=== PATIENT | female | born 1975 | race Caucasian/White ===

== ENCOUNTER 2020-12-13 06:50 | Emergency (ER) | payer MEDICAID, SELFPAY ==
--- NOTE | ~2020-12-13 | CT_ITS ---
EXAMINATION: CT CHEST PE STUDY CLINICAL INFORMATION: Elevated d-dimer. Evaluate for DVT. COMPARISON: Chest x-ray dated 12/13/2020. TECHNIQUE: Prior to contrast administration, localization images were obtained. After the administration of 65 mL of intravenous Omnipaque 350, multidetector CT volume acquisition of the chest was performed. 3-D postprocessing was performed with multiplanar reconstructions and MIP images obtained at the acquisition workstation under concurrent physician supervision. This CT examination was performed using dose optimization techniques as appropriate, variously including the following: *Automated exposure control *Adjustment of mA and/or kV according to patient size (this includes techniques or standardized protocols for targeted exams where dose is matched to indication/reason for exam; i.e. extremities or head) *Use of iterative reconstruction technique DLP: 232.00 mGy-cm. FINDINGS: Pulmonary arteries: The bolus timing on this study was delayed but acceptable for visualization of the pulmonary arterial tree. There is limitation in assessment of the central pulmonary vessels, especially in the right upper lobe due to extensive beam hardening artifact from dense contrast within the superior vena cava. Multiple subtle filling defects are suggested within the right upper lobe segmental and subsegmental pulmonary arteries, which, however, appear linear on the coronal reconstructed sequences and are most consistent with stairstep artifact. There are no definite intraluminal pulmonary arterial filling defects seen to suggest pulmonary embolism in the main pulmonary artery, right and left main pulmonary artery, lobar and segmental branches. Lungs: There are multifocal bilateral patchy groundglass opacities seen in the lungs bilaterally, suspicious for a diffuse viral or atypical pneumonitis. In the correct clinical setting, this may represent COVID 19 pneumonia. No dense consolidation is seen and no air bronchograms are noted. No significant pleural effusion or pneumothorax. The central airways are patent. Mild biapical pleural-based reticulation seen, consistent with scarring. There are a few scattered solid noncalcified 2 to 5 mm pulmonary nodules, including in the right upper lobe (series 9, image 72, 117) and based on the right minor fissure (series 9, image 245), most consistent with a fissural based lymph node). Aorta and heart: The heart is normal in size. The aorta is normal. There is no pericardial effusion Lymphatic structures: There is no lymphadenopathy. Upper abdomen: Limited evaluation of the upper abdominal viscera demonstrates no focal abnormality. Bones: No significant focal findings. CT/CT angio chest PE protocol IMPRESSION: 1. Limited exam due to extensive beam hardening artifact. No definite evidence of pulmonary embolism. 2. Multifocal bilateral patchy groundglass opacities in the lungs bilaterally, raising the suspicion of a diffuse viral or atypical pneumonitis. As mentioned above, in the correct clinical setting, findings may be consistent with COVID 19 pneumonia. 3. A few scattered nonspecific 2 to 5 mm solid noncalcified pulmonary nodules are seen in the lungs bilaterally, at least one of which is consistent with a fissural based lymph node. These are of doubtful clinical significance and if the patient has no underlying risk factors, no additional follow-up imaging is required. If the patient has underlying risk factors, optional CT scan follow-up in 12 months can be performed. VTE: Negative
--- NOTE | ~2020-12-13 | XR_ITS ---
EXAMINATION: XR CHEST CLINICAL INFORMATION: Shortness of breath COMPARISON: None TECHNIQUE: Frontal view of the chest was obtained. FINDINGS: No significant abnormality is noted involving the heart, lungs, mediastinum, bony thorax or soft tissues. XR/XR chest 1V IMPRESSION: Unremarkable examination.
[2020-12-13 07:20] VITALS: BP 128/77; PULSE 69; RESP 18; O2SAT 94; BMI 27.4
--- NOTE | 2020-12-13 08:23 | ED.URI ---
HPI - URI/Sore Throat General Chief Complaint: Upper Respiratory Symptoms Stated Complaint: DIFF BREATHING Time Seen by Provider: 12/13/20 08:18 Source: patient Mode of arrival: ambulatory Limitations: no limitations History of Present Illness HPI Narrative: 45-year-old female came in for evaluation of shortness of breath. Patient walked into emergency department today with symptoms of shortness of breath for the past 2 weeks, patient currently is a smoker, feels chest tightness on coughing sometimes green sputum production, patient declined any fever chills, patient declined flu-like symptoms or generalized body ache or fever, no recent travel, no recent exposure to sick contact, no lower extremity swelling, no history of PE/DVT. No chest pain. Patient never had a history of asthma or bronchitis. Related Data Previous Rx's Medication Instructions Recorded albuterol sulfate [ProAir HFA] 1 inh INHALATION QID PRN #8.5 g 12/13/20 prednisone 20 mg PO BID #10 tab 12/13/20 Allergies Allergy/AdvReac Type Severity Reaction Status Date / Time No Known Allergies Allergy Verified 12/13/20 07:20 Review of Systems Review of Systems: All other systems are reviewed and are negative Constitutional: Reports as per HPI and Reports no additional constitutional complaints Eyes: Reports as per HPI and Reports no additional eye complaints Reports system reviewed and no additional complaints, except as documented Cardiovascular: Reports as per HPI and Reports no additional cardiovascular complaints Respiratory: Reports as per HPI and Reports no additional respiratory complaints Gastrointestinal: Reports as per HPI and Reports no additional gastrointestinal complaints Genitourinary: Reports no additional female genitourinary complaints Musculoskeletal: Reports no additional musculoskeletal complaints Skin/Breast: Reports system reviewed and no additional complaints, except as docu Psychiatric: Reports no additional psychiatric complaints Endocrine: Reports no additional endocrine complaints Hematologic/Lymphatic: Reports no additional hematologic/lymphatic complaints Allergic/Immunologic: Reports no additional allergic/immunologic complaints Reports system reviewed and no additional complaints, except as documented and Reports Abnormal speech present [facility] Social History Social History Advance Directives: No Advance Directives Information Provided: No Physical Exam Vital Signs: Vital Signs: Last Vital Signs Temp 97.9 F 12/13/20 11:24 Pulse 86 12/13/20 11:24 Resp 16 12/13/20 11:24 BP 118/55 L 12/13/20 11:24 Pulse Ox 95 12/13/20 11:24 Body Mass Index 27.4 Vital signs have been reviewed as appeared to be correct. Blood pressure normal. Heart rate normal. Respiration rate normal. Temperature normal. Oxygen saturation normal. Appearance: Alert. Oriented X3. No acute distress. Head: Normal external exam. Normocephalic. Atraumatic. No Mcdonald signs noted. No raccoon eyes noted Eyes: PERRLA. EOMI. Conjunctiva and sclera normal. Eyelids normal. ENT: TM's Normal. Pharynx normal. Uvula midline. Moist mucous membranes. No trismus noted. No drooling noted. No muffled voice noted. Neck: Normal inspection. Neck supple. FROM. No adenopathy. Thyroid Normal. No meningeal signs. No neck mass noted. CVS: Normal heart rate and rhythm. Heart sound normal. No murmurs noted. Pulses normal throughout. Respiratory: No respiratory distress. Painless inspiration. Breath sounds normal. Diffuse bilateral expiratory wheezing with prolonged expiration, no rhonchi noted. Chest nontender. No accessory muscle usage noted or decreased air movement noted. Abdomen: Soft and nontender. Bowel sounds normal in all 4 quadrants. No distention noted. No organomegaly noted. No visible injury noted. Back: No CVA tenderness. Full range of motion noted. Skin: Skin warm and dry. Normal skin color. Normal skin turgor. No rashes/lesions/lacerations noted. Extremities: No lower extremity edema. Extremities exhibit normal range of motion. Extremities nontender. Neuro: Oriented X 3. No motor deficit. No sensory deficit. Reflexes normal. Course Course Course Narrative: Assessment and plan. Shortness of breath, patient has no risk for COVID or sick contact exposure, COVID testing was negative today, however CT of the chest is recommending patient had COVID infection, patient has no risk for PE or DVT, patient felt better with bronchodilator/Solu-Medrol while she is in the emergency department and patient felt better after the treatment. MDM - URI/Sore Throat Lab Data Attestation: I reviewed the patient's lab results. Result diagrams: 12/13/20 08:57 12/13/20 08:57 Labs: Lab Results 05/01/21 05/01/21 05/01/21 Range/Units 08:57 08:57 08:57 WBC 11.7 H (4.8-10.8) X10*3/uL RBC 5.23 (4.20-5.50) X10*6/uL Hgb 14.9 (12.0-16.0) g/dl Hct 45.1 (37-47) % MCV 86.2 (80-98) fL MCH 28.5 (27.0-33.0) pg MCHC 33.0 (31.0-35.0) g/dl RDW 14.9 (11.0-16.0) % Plt Count 417 H (160-400) X10*3/uL MPV 10.4 (9.4-12.3) fL Immature Gran % (Auto) 0.3 (0.0-0.4) % Neut % (Auto) 74.6 H (45-73) % Lymph % (Auto) 12.2 L (20-40) % Cotton % (Auto) 5.0 (2-11) % Eos % (Auto) 7.3 H (0-4) % Baso % (Auto) 0.6 (0-2) % Lymph # (Auto) 1.4 (1.2-4.9) X10*3/uL Cotton # (Auto) 0.6 (0.1-1.2) X10*3/uL Eos # (Auto) 0.9 H (0.0-0.4) X10*3/uL Baso # (Auto) 0.1 (0.0-0.2) X10*3/uL Abs Immat Gran (auto) 0.03 (0.00-0.03) X10*3/uL Absolute Neuts (auto) 8.7 H (2.0-8.3) X10*3/uL Absolute Nucleated RBC 0.000 (0.0-0.012) X10*3/uL Nucleated RBC % (auto) 0.0 (0.0-0.2) /100WBC D-Dimer 419 NG/ML Sodium 139 (135-145) mmol/L Potassium 4.3 (3.3-5.1) mmol/L Chloride 104 (96-108) mmol/L Carbon Dioxide 23 (22-29) mmol/L Anion Gap 16 (12-20) BUN 9 (9-16) mg/dL Creatinine 0.77 (0.5-1.4) mg/dL Estim Creat Clear Calc 83.4 Estimated GFR > 60 Random Glucose 85 (60-115) mg/dL Calcium 9.8 (8.4-10.2) mg/dL Troponin I High Sens (<3.5-17.0) ng/L B-Natriuretic Peptide (<100) pg/mL COVID-19 (EDILBERTO) (Negative) COVID-19 Clin Com 12/13/20 12/13/20 Range/Units 08:57 08:57 WBC (4.8-10.8) X10*3/uL RBC (4.20-5.50) X10*6/uL Hgb (12.0-16.0) g/dl Hct (37-47) % MCV (80-98) fL MCH (27.0-33.0) pg MCHC (31.0-35.0) g/dl RDW (11.0-16.0) % Plt Count (160-400) X10*3/uL MPV (9.4-12.3) fL Immature Gran % (Auto) (0.0-0.4) % Neut % (Auto) (45-73) % Lymph % (Auto) (20-40) % Cotton % (Auto) (2-11) % Eos % (Auto) (0-4) % Baso % (Auto) (0-2) % Lymph # (Auto) (1.2-4.9) X10*3/uL Cotton # (Auto) (0.1-1.2) X10*3/uL Eos # (Auto) (0.0-0.4) X10*3/uL Baso # (Auto) (0.0-0.2) X10*3/uL Abs Immat Gran (auto) (0.00-0.03) X10*3/uL Absolute Neuts (auto) (2.0-8.3) X10*3/uL Absolute Nucleated RBC (0.0-0.012) X10*3/uL Nucleated RBC % (auto) (0.0-0.2) /100WBC D-Dimer NG/ML Sodium (135-145) mmol/L Potassium (3.3-5.1) mmol/L Chloride (96-108) mmol/L Carbon Dioxide (22-29) mmol/L Anion Gap (12-20) BUN (9-16) mg/dL Creatinine (0.5-1.4) mg/dL Estim Creat Clear Calc Estimated GFR Random Glucose (60-115) mg/dL Calcium (8.4-10.2) mg/dL Troponin I High Sens < 3.5 (<3.5-17.0) ng/L B-Natriuretic Peptide 20 (<100) pg/mL COVID-19 (EDILBERTO) Negative (Negative) COVID-19 Clin Com See Note Imaging Data CT angio chest: Radiologist's impression: 1. Limited exam due to extensive beam hardening artifact. No definite evidence of pulmonary embolism. 2. Multifocal bilateral patchy groundglass opacities in the lungs bilaterally, raising the suspicion of a diffuse viral or atypical pneumonitis. As mentioned above, in the correct clinical setting, findings may be consistent with COVID 19 pneumonia. 3. A few scattered nonspecific 2 to 5 mm solid noncalcified pulmonary nodules are seen in the lungs bilaterally, at least one of which is consistent with a fissural based lymph node. These are of doubtful clinical significance and if the patient has no underlying risk factors, no additional follow-up imaging is required. If the patient has underlying risk factors, optional CT scan follow-up in 12 months can be performed. Chest x-ray: Radiologist's impression: Unremarkable. Discharge Plan Discharge Clinical Impression: Bronchitis Patient Disposition: Home, Self-Care Instructions: Acute Bronchitis (ED) Prescriptions: New prednisone 20 mg tablet 20 mg PO BID Qty: 10 RF: 0 albuterol sulfate [ProAir HFA] 90 mcg/actuation HFA aerosol inhaler 1 inh inhalation QID PRN (Reason: shortness of breath or wheezing) Qty: 8.5 RF: 0 Referrals: Physician,Unknown [Primary Care Provider] - 2 days
[2020-12-13 08:48] VITALS: PULSE 63; O2SAT 95
[2020-12-13] MEDS: Albuterol Sulfate (0.083%) 2.5 MG/3 ML VIAL.NEB INHALE (08:48)
[2020-12-13] MEDS: Albuterol/Iprat 2.5/0.5MG 3 ML AMPUL.NEB INHALE (08:48)
[2020-12-13] MEDS: methylPREDNISolone Sod Succ 125 MG/2 ML VIAL IVPUSH (09:00)
[2020-12-13 09:05] LABS: MANUAL DIFF FLAG NO
[2020-12-13 09:10] LABS: Basophils Absolute Auto 0.1 X10*3/uL (0.0-0.2); Basophils Percent Auto 0.6 % (0-2); Eosinophils Absolute Auto 0.9 X10*3/uL (0.0-0.4); Eosinophils Percent Auto 7.3 % (0-4); Hematocrit 45.1 % (37-47); Hemoglobin 14.9 g/dl (12.0-16.0); Imm Gran Abs Auto 0.03 X10*3/uL (0.00-0.03); Imm Gran Pct Auto 0.3 % (0.0-0.4); Lymphocytes Absolute Auto 1.4 X10*3/uL (1.2-4.9); Lymphocytes Percent Auto 12.2 % (20-40); Mean Corpuscular Hemoglobin 28.5 pg (27.0-33.0); Mean Corpuscular Volume 86.2 fL (80-98); Mean Platelet Volume 10.4 fL (9.4-12.3); Monocytes Absolute Auto 0.6 X10*3/uL (0.1-1.2); Neutrophils Absolute Auto 8.7 X10*3/uL (2.0-8.3); Neutrophils Percent Auto 74.6 % (45-73); Platelet Count 417 X10*3/uL (160-400); Red Blood Count 5.23 X10*6/uL (4.20-5.50); Red Cell Distribution Width 14.9 % (11.0-16.0); White Blood Count 11.7 X10*3/uL (4.8-10.8)
[2020-12-13 09:26] LABS: COVID-19 Test Negative (Negative)
[2020-12-13 09:40] LABS: D Dimer 419 NG/ML
[2020-12-13 09:48] LABS: Anion Gap 16 (12-20); Blood Urea Nitrogen 9 mg/dL (9-16); Calcium 9.8 mg/dL (8.4-10.2); Carbon Dioxide 23 mmol/L (22-29); Chloride 104 mmol/L (96-108); Creatinine Clr Calc Pharmacy 83.4; Estimated Glomerular Filt Rate > 60; Glucose Random 85 mg/dL (60-115); Potassium 4.3 mmol/L (3.3-5.1); Sodium 139 mmol/L (135-145)
[2020-12-13 09:50] LABS: B Type Natriuretic Peptide 20 pg/mL (<100); Troponin-I High Sensitivity < 3.5 ng/L (<3.5-17.0)
--- NOTE | 2020-12-13 10:38 | PC.NURSE ---
pt amb in room states shes still feeling sob, however feels its improved from this morning. currently in ct scan
[2020-12-13] MEDS: iohexoL 350 MG/ML 100 ML INFUS..BTL IV (11:15)
[2020-12-13 11:24] VITALS: BP 118/55; PULSE 86; RESP 16; TEMP 36.6; O2SAT 95
== END 2020-12-13 12:37 | disposition home or self-care (01) ==
PROVIDERS: Emergency Provider Emergency Medicine
DX: J40 Bronchitis, not specified as acute or chronic (principal); R06.02 Shortness of breath; Z20.822 Contact with and (suspected) exposure to COVID-19; Z79.899 Other long term (current) drug therapy
CPT/HCPCS: 36415; 71045; 71275; 80048; 83880; 84484; 85025; 85379; 87635; 94640; 96365; 96374; 96375; 99283; 99284; J2930; Q9967

== ENCOUNTER 2022-09-01 08:20 | Emergency (ER) | payer OTHER, SELFPAY ==
[2022-09-01 08:24] VITALS: BP 150/72; PULSE 68; RESP 18; TEMP 36.6; O2SAT 98; BMI 29.2
--- NOTE | 2022-09-01 10:24 | ED_ITS ---
HPI - General Adult General Chief complaint: General Medical Stated complaint: Rash Time Seen by Provider: 09/01/22 09:56 Source: patient Mode of arrival: ambulatory Limitations: no limitations History of Present Illness HPI narrative: 46 yo female presents to the ER for evaluation of an itchy, red rash on her trunk from her new dog who has mange. She states she has small red bumps on her trunk and extremities. She just got a new dog last week that was brought to the that. They diagnosed with range and the animal has a [facility] [place] [facility] They are waiting the arrival of the prescription to start topical treatments. Patient noticed worsening of the rash last night and difficulty sleeping. It is itchy and new spots are popping up. No one else in the home has the rash. She just brought all of her linens to the basement to wash them in hot water this morning. She denies any facial swelling. No oral swelling. No shortness of breath or wheezing. MD complaint: rash Onset (ago): day(s) (1) Location: abdomen, left, right, upper extremity and lower extremity Severity: moderate Severity scale (1-10): 6 Quality: burning and other (Pruritic) Pain Consistency: constant Relieving factors: other (Topical anti-itch) Associated symptoms: denies other symptoms Treatments prior to arrival: none Related Data Previous Rx's Medication Instructions Recorded albuterol sulfate 90 mcg/actuation 1 inh inhalation QID PRN shortness 12/13/20 aerosol inhaler (ProAir HFA) of breath or wheezing #8.5 grams prednisone 20 mg tablet 20 mg PO BID #10 tabs 12/13/20 albuterol sulfate 2.5 mg/3 mL 2.5 mg (3 mL) inhalation Q4-6H PRN 12/15/20 (0.083 %) solution for nebulization shortness of breath or wheezing #90 mL diphenhydramine HCl 25 mg capsule 50 mg PO TID PRN itching #30 caps 09/01/22 (Benadryl) permethrin 5 % topical cream 1 appl topical Q14D 2 doses #60 09/01/22 (Elimite) grams Allergies Allergy/AdvReac Type Severity Reaction Status Date / Time No Known Allergies Allergy Verified 09/01/22 08:24 Review of Systems Review of Systems: Yes all other systems are reviewed and are negative [facility] Social History Social History Smoked in Last 30 Days: Yes Use of substances other than those prescribed or required for medical reasons: No Advance Directives: No Advance Directives Information Provided: No Physical Exam ED Vital Signs: Vital Signs - 24 hr 09/01/22 08:24 09/01/22 10:35 Temperature 98 F 97.6 F Pulse Rate 68 54 Respiratory Rate 18 Blood Pressure 150/72 H 125/56 L Pulse Oximetry 98 98 Oxygen Delivery Method Room Air Room Air BMI result Body Mass Index 29.2 Appearance: Alert. Oriented X3. No acute distress. Eyes: Pupils equal, round and reactive to light. ENT: Pharynx normal. Neck: Normal inspection. Neck supple. CVS: Normal heart rate and rhythm. Pulses normal. Respiratory: No respiratory distress. Breath sounds normal. Abdomen: Soft and nontender. +BS x4 Skin: Skin warm and dry. Normal skin color. Normal skin turgor. On the anterior and posterior trunk as well as the lower extremities and upper extremities there is punctate, raised, erythematous rash scattered throughout. No burrowing or involvement of the web spaces. No urticarial type rash, no ulcerations or fluid-filled blisters. Extremities: No lower extremity edema. Neuro: Oriented X 3. No motor deficit. No sensory deficit. Course Course Course Narrative: 46-year-old female presents to the ER for evaluation of a red itchy rash for the last 1 day after getting a new dog last week. Diagnosed with mange. This can be contagious to humans. It is typically treated with permethrin. We discussed the diagnosis and management as well as need for follow-up with her PCP. Will p rescribe her with 2 doses of permethrin as well as Benadryl for itching. We discussed importance of washing all the linens and keeping the dog off of the furniture. She will follow-up with her PCP. She is stable for discharge home. All questions were answered. Medical Decision Making Differential Diagnosis Differential Diagnoses: The differential diagnosis associated with the presentation includes Contact dermatitis, mange, scabies, allergic dermatitis, eczema, less likely shingles, urticaria External Record Review External record reviewed: Outpatient record and Prior outpatient labs Prescription Management I considered prescription management with: Antibiotic No evidence of acute bacterial infection Critical Care Time Critical Care Time Critical Care Time: No Discharge Plan Discharge Clinical Impression: Sarcoptic mange Patient Disposition: Home, Self-Care Instructions: Scabies (ED) Additional Instructions: Use the prescribed cream tonight - apply it to your entire body from the neck down and leave it on overnight You may need to reapply this treatment in 14 days. Wash all of your linen in HOT water Do not allow the dog on the furniture Follow up with your PCP. If you develop new or worsening symptoms call 911 or come back to the ER for further evaluation. Prescriptions: New permethrin [Elimite] 5 % cream 1 appl topical Q14D Qty: 60 0RF Rx Instructions: apply second treatment 14 days after first treatment if live lice remain diphenhydramine HCl [Benadryl] 25 mg capsule 50 mg PO TID PRN (Reason: itching) Qty: 30 0RF No Action prednisone 20 mg tablet 20 mg PO BID Qty: 10 0RF albuterol sulfate [ProAir HFA] 90 mcg/actuation HFA aerosol inhaler 1 inh inhalation QID PRN (Reason: shortness of breath or wheezing) Qty: 8.5 0RF albuterol sulfate 2.5 mg /3 mL (0.083 %) solution for nebulization 2.5 mg inhalation Q4-6H PRN (Reason: shortness of breath or wheezing) Qty: 90 0RF
[2022-09-01 10:35] VITALS: BP 125/56; PULSE 54; TEMP 36.4; O2SAT 98
== END 2022-09-01 11:29 | disposition home or self-care (01) ==
PROVIDERS: Emergency Provider Emergency Medicine
DX: B86 Scabies (principal)
CPT/HCPCS: 99283; 99284